=== PATIENT | female | born 1970 | race African-American/Black ===

== ENCOUNTER 2017-09-22 23:35 | Emergency (ER) | payer MEDICAID ==
[~2017-09-22] VITALS: Ht 170.2 cm; Wt 69.0 kg
[2017-09-23] MEDS ORDERED: ONDANSETRON HCL 4MG/2ML VIAL IV STA (05:27)
[2017-09-23] MEDS ORDERED: SODIUM CHLORIDE 0.9% 1,000 ML IV ONE (05:27)
[2017-09-23 06:25] LABS: BASOPHILS % 0.4 % (0.0-2.0); HEMOGLOBIN. 10.6 g/dL (12.0-16.0); LYMPHOCYTES % 9.4 % (20.0-50.0); MEAN CORPUSCULAR VOLUME 78.4 fL (81.0-99.0); MEAN PLATELET VOLUME 7.4 fl (7.4-10.4); MONOCYTES % 6.4 % (2.0-8.0); NEUTROPHILS % 83.8 % (40.0-76.0); PLATELET 293 x1000/uL (130-400); RED BLOOD CELL COUNT 4.08 mill/uL (4.2-5.4); RED CELL DISTRIBUTION WIDTH 16.3 % (11.6-14.6)
[2017-09-23 06:28] LABS: CHLORIDE 105 mEq/L (98-107)
[2017-09-23 06:29] LABS: INR 1.1; PROTHROMBIN TIME 11.7 sec (9.4-11.6)
[2017-09-23 06:37] LABS: ETHANOL BLOOD < 10 mg/dL
[2017-09-23 06:49] LABS: CLARITY URINE CLEAR (CLEAR); COLOR URINE YELLOW (YELLOW); KETONES URINE NEGATIVE (NEGATIVE); LEUKOCYTE ESTERASE URINE NEGATIVE (NEGATIVE); NITRITE URINE NEGATIVE (NEGATIVE); OCCULT BLOOD URINE 1+ (NEGATIVE); PROTEIN URINE NEGATIVE (NEGATIVE); SPECIFIC GRAVITY URINE 1.009 (1.005-1.030)
[2017-09-23 07:26] LABS: *BARBITURATES SCREEN URINE NEGATIVE (NEGATIVE); METHADONE URINE SCREEN NEGATIVE (NEGATIVE); OPIATES URINE SCREEN NEGATIVE (NEGATIVE); PHENCYCLIDINE URINE SCREEN NEGATIVE (NEGATIVE)
[2017-09-23 07:27] LABS: *AMPHETAMINES SCREEN URINE NEGATIVE (NEGATIVE); *BENZODIAZEPINES SCREEN URINE NEGATIVE (NEGATIVE)
[2017-09-23 07:28] LABS: *COCAINE SCREEN URINE PRESUMTIVE POSITIVE (NEGATIVE); CANNABINOID URINE SCREEN PRESUMTIVE POSITIVE (NEGATIVE)
[2017-09-23 09:50] VITALS: BP 123/61
== END 2017-09-23 09:50 | disposition home or self-care (01) ==
LOC: ER 23:35
DX: J18.9 Pneumonia, unspecified organism (principal); H91.90 Unspecified hearing loss, unspecified ear; R10.9 Unspecified abdominal pain
CPT/HCPCS: 36415; 71045; 80053; 80305; 81003; 81025; 83690; 85025; 85610; 93005; 96361; 96374; 99285; G0482; J2405; J7030